=== PATIENT | female | born 1990 | race Caucasian/White ===

== ENCOUNTER 2020-03-12 08:24 | Outpatient (CLI) | payer BC, SELFPAY ==
[2020-03-12 08:56] VITALS: BP 115/74; PULSE 80
[2020-03-12 09:00] VITALS: BP 112/76; PULSE 96
[2020-03-12 09:03] LABS: Basophils Percent Auto 0.3 % (0.2-1.2); Eosinophils Absolute Auto 0.2 K/mm3 (0-0.3); Eosinophils Percent Auto 1.8 % (0-4.4); Hematocrit 37.8 % (37.0-47.0); Hemoglobin 12.5 g/dL (12.0-15.0); Immature Granulocyte Absolute 0.06 K/mm3 (0.00-0.031); Immature Granulocyte Percent A 0.6 % (0-0.5); Lymphocytes Absolute Auto 1.15 K/mm3 (0.9-3.2); Lymphocytes Percent Auto 11.6 % (18.3-44.2); Mean Corpuscular HGB Conc 33.1 g/dl (32-36); Mean Corpuscular Hemoglobin 28.8 pg (26-34); Mean Corpuscular Volume 87.1 fl (80-100); Mean Platelet Volume 10.1 fl (7.4-10.4); Monocytes Absolute Auto 0.6 K/mm3 (0.1-0.6); Monocytes Percent Auto 5.9 % (2.6-8.5); Neutrophils Absolute Auto 7.9 K/mm3 (1.3-6.7); Neutrophils Percent Auto 79.8 % (45.5-73.1); Platelet Count Result 192 k/mm3 (150-375); Red Blood Count 4.34 M/mm3 (4.2-5.4); Red Cell Distribution Width 13.4 % (11.5-14.5); White Blood Count 9.9 K/mm3 (4.5-10.0)
[2020-03-12 09:10] LABS: Creatinine Urine 100.6 mg/dL; Total Protein Urine Random 8 mg/dL
[2020-03-12 09:15] VITALS: BP 112/78; PULSE 82
[2020-03-12 09:16] LABS: Alanine Aminotransferase 11 U/L (4-35); Albumin Level 3.4 g/dL (3.5-5.1); Alkaline Phosphatase 53 U/L (38-126); Aspartate Amino Transferase 16 U/L (14-36); Bilirubin,Total 0.4 mg/dL (0.2-1.3); Blood Urea Nitrogen 10 mg/dL (7-17); Calcium 8.3 mg/dL (8.4-10.2); Carbon Dioxide 24 mmol/L (22-30); Chloride 104 mmol/L (98-107); Estimated Glomerular Filt Rate > 60; Glucose 80 mg/dL (65-105); Potassium 3.5 mmol/L (3.4-5.0); Sodium 133 mmol/L (137-145); Uric Acid 3.5 mg/dL (2.5-7.5)
--- NOTE | 2020-03-12 10:00 | PC.NURSE ---
Called Dr. Crews with labs and BPs. Orders received.
== END 2020-03-12 10:15 | disposition home or self-care (01) ==
LOC: ANHOBOP 08:31 → ANHOBPP 08:36
PROVIDERS: Visit Provider Obstetrics & Gynecology
DX: O13.9 Gestational [pregnancy-induced] hypertension without significant proteinuria, unspecified trimester (principal)
CPT/HCPCS: 36415; 80053; 82570; 84156; 84550; 85025; 99199

== ENCOUNTER 2020-03-13 16:30 | Outpatient (CLI) | payer BC, SELFPAY ==
[2020-03-13 16:48] VITALS: BMI 36.7
[2020-03-13 17:20] LABS: Collection Time Urine 24 HOURS
[2020-03-13 17:56] LABS: Patient Weight 207 Lbs
[2020-03-13 18:03] LABS: Specific Gravity Ur 1.011; Total Volume 24 Hour Urine 2800 ml
[2020-03-13 18:12] LABS: Creatinine Clearance Urine 147.1 ml/min (75-125); Creatinine Urine 51.3 mg/dL; Total Protein Urine 24 Hr 252 MG/DAY (28-141); Total Protein Urine Random 9 mg/dL
== END 2020-03-13 16:31 | disposition home or self-care (01) ==
LOC: ANHOBOP 16:42
PROVIDERS: Visit Provider Obstetrics & Gynecology
DX: O13.9 Gestational [pregnancy-induced] hypertension without significant proteinuria, unspecified trimester (principal)
CPT/HCPCS: 81050; 82575; 84156

== ENCOUNTER 2020-06-29 09:54 | Outpatient (RCR) | payer BC, SELFPAY ==
[2020-06-15 12:58] VITALS: BP 115/73; PULSE 81
[2020-06-22 09:15] VITALS: BP 121/74; PULSE 98
--- NOTE | ~2020-06-29 | US_ITS ---
EXAMINATION: US OB limited EXAM DATE: 06/22/2020 09:27 INDICATION: Large for gestational age. 3rd trimester. TECHNIQUE: Pelvic obstetrical transabdominal sonogram was performed by a technologist. There are mu ltiple grayscale and Doppler images available for interpretation. Comparison is made to prior examina tion from 06/15/2020. FINDINGS: There is a single fetus identified in vertex presentation with a heart rate of 155 beats p er minute. The placenta is located in the anterior position. There is no sonographic evidence of ret roplacental hemorrhage identified. The amniotic fluid index is 13.5 centimeters, which is normal. IMPRESSION: 1. Single fetus in vertex presentation with heart rate 155 beats per minute. 2. Normal STACI 13.5 cm. Reviewed, dictated and finalized at location A.
--- NOTE | ~2020-06-29 | US_ITS ---
US OB limited 06/29/2020 10:43 Indication: Large for gestational age. Evaluate STACI. Procedure: High-resolution Limited obstetrical ultrasound Comparison: 06/22/2020 Findings: Single living intrauterine in vertex presentation with heart rate of 144 BP M. Placenta is anterior without previa. STACI is normal measuring 19.1 cm (normal range for gestational age is 7.3-23.9 cm. Impression: 1: Single living intrauterine in vertex presentation. 2: Normal STACI measures 19.1 cm. Reviewed, dictated and finalized at location A. Impression: 1: Single living intrauterine in vertex presentation. 2: Normal STACI measures 19.1 cm.
--- NOTE | ~2020-06-29 | US_ITS ---
US OB limited 06/15/2020 12:40 Indication: Evaluate fluid volume Procedure: High-resolution Limited obstetrical ultrasound Comparison: No prior studies for comparison. Findings: There is a single living intrauterine and vertex presentation. heart rate i s 131 BPM. Placenta is anterior without previa. Amniotic fluid index is normal measuring 15.1 cm (nor mal range for gestational age is 7.7-24.9 cm). Impression: 1: Normal STACI measures 15.1 cm. Reviewed, dictated and finalized at location A. Impression: 1: Normal STACI measures 15.1 cm.
[2020-06-29 10:52] VITALS: BP 110/70
== END 2020-07-05 14:41 | disposition home or self-care (01) ==
LOC: ANHOBOP 09:54
PROVIDERS: Visit Provider Obstetrics & Gynecology
DX: O36.63X0 Maternal care for excessive fetal growth, third trimester, not applicable or unspecified (principal); Z3A.36 36 weeks gestation of pregnancy; Z3A.37 37 weeks gestation of pregnancy; Z3A.38 38 weeks gestation of pregnancy
CPT/HCPCS: 59025; 76815

== ENCOUNTER 2020-07-04 19:00 | Inpatient (IN) | payer BC, SELFPAY ==
[2020-07-04] VITALS (14 sets, daily range): BP systolic 84–129; BP diastolic 45–79; PULSE 61–109; RESP 18–20; TEMP 36.4–36.8; BMI 40.6
[2020-07-04 20:02] LABS: Basophils Absolute Auto 0.1 K/mm3 (0.0-0.1); Basophils Percent Auto 0.5 % (0.2-1.2); Eosinophils Absolute Auto 0.2 K/mm3 (0-0.3); Hematocrit 40.3 % (37.0-47.0); Hemoglobin 13.6 g/dL (12.0-15.0); Immature Granulocyte Absolute 0.06 K/mm3 (0.00-0.031); Immature Granulocyte Percent A 0.5 % (0-0.5); Lymphocytes Absolute Auto 2.19 K/mm3 (0.9-3.2); Lymphocytes Percent Auto 18.8 % (18.3-44.2); Mean Corpuscular HGB Conc 33.7 g/dl (32-36); Mean Corpuscular Hemoglobin 28.8 pg (26-34); Mean Corpuscular Volume 85.4 fl (80-100); Mean Platelet Volume 10.6 fl (7.4-10.4); Monocytes Absolute Auto 0.7 K/mm3 (0.1-0.6); Monocytes Percent Auto 5.7 % (2.6-8.5); Neutrophils Absolute Auto 8.5 K/mm3 (1.3-6.7); Neutrophils Percent Auto 72.5 % (45.5-73.1); Platelet Count Result 191 k/mm3 (150-375); Red Blood Count 4.72 M/mm3 (4.2-5.4); White Blood Count 11.7 K/mm3 (4.5-10.0)
[2020-07-04] MEDS: DINOPROSTONE 10 MG VAG INSERT VAGINAL (20:29)
[2020-07-04] MEDS: LACTATED RINGERS 1,000 ML 125 ML IV CONT (20:37)
[2020-07-05] VITALS (161 sets, daily range): BP systolic 54–133; BP diastolic 27–107; PULSE 29–233; RESP 14–18; TEMP 36.2–37; O2SAT 80–100
[2020-07-05] MEDS: OXYTOCIN 30 UNITS/NS 500 ML 30 UNITS/500 ML BAG IV CONT (08:59)
[2020-07-05] MEDS: LACTATED RINGERS 1,000 ML 125 ML IV CONT ×4 (11:15→16:15)
[2020-07-05 11:20] LABS: Rapid Plasma Reagin Non-Reactive (NonReactive)
--- NOTE | 2020-07-05 12:09 | PM.IMHP ---
H&P: HPI History of Present Illness Date/Time: 07/05/20 12:09 Chief complaint: Induction of Labor Narrative: Marlena Draper is a 30 year old female at 39 4/7 weeks by EDC of 07/08/20 based on LMP 10/01/19 consistent with 8 week ultrasound. She is here for elective medical induction of labor. She was getting surveillance due to BMI 40 and has had normal surveillance. Cephalic presentation. PNC significant for gallstones diagnosed early . She has been asymptomatic. Last ultrasound EFW 75%. Labs: B+,ab-neg, h/h1/42,NIPT- nl, UA neg, Ur Cx neg, Frag X neg, HepBsag-neg, RPR neg, GC/CHL -/-, HIV neg, HCV ab neg, Hgbfrac-HgbA, one hour 116, GBS neg. Review of Systems Review of Systems: All systems reviewed & are unremarkable except as noted in HPI and below Constitutional: Constitutional: Reports no additional constitutional complaints and Denies headache(s) Eyes: Eyes: Denies spots in vision ENT: Reports system reviewed and no additional complaints, except as documented and Denies headache(s) Cardiovascular: Cardiovascular: Denies chest pain and Denies dyspnea Respiratory: Respiratory: Denies dyspnea Gastrointestinal: Gastrointestinal: Reports no additional gastrointestinal complaints Genitourinary: Genitourinary: Reports amenorrhea Musculoskeletal: Musculoskeletal: Reports no additional musculoskeletal complaints Integumentary/Breasts: Skin/Breast: Denies breast mass and Denies rash Neurologic: Denies headache(s) Psychiatric: Psychiatric: Reports no additional psychiatric complaints [facility] Past Medical History Medical History (Updated 07/05/20 @ 12:15 by Eric Crews MD) Gallstones Vaginal delivery Surgical History Surgical History [place] teeth removed Family History Family History Father Family history of type 1 diabetes mellitus Social History Social History Smoking status: Never smoker Second hand tobacco smoke exposure: No Alcohol intake: current Substance use: never Spiritual care concerns: No Meds Home Medications and Allergies Home Medications Medication Instructions Recorded Confirmed Type no.144-folic acid 1 tablet PO DAILY 07/04/20 07/04/20 History [] Allergies Allergy/AdvReac Type Severity Reaction Status Date / Time No Known Allergies Allergy Verified 07/02/20 09:49 Vital Signs Vital Signs - 24 hr 07/04/20 19:41 07/04/20 19:46 07/04/20 20:01 Temperature 98.3 F Pulse Rate 70 84 73 Respiratory Rate 20 Blood Pressure 117/64 119/74 121/74 07/04/20 20:16 07/04/20 20:36 07/04/20 20:46 Temperature Pulse Rate 75 61 77 Respiratory Rate Blood Pressure 129/79 123/66 114/73 07/04/20 21:01 07/04/20 21:16 07/04/20 21:32 Temperature Pulse Rate 74 66 92 Respiratory Rate Blood Pressure 109/45 L 84/51 L 95/75 L 07/04/20 21:46 07/04/20 22:01 07/04/20 22:16 Temperature Pulse Rate 63 109 H 65 Respiratory Rate Blood Pressure 105/48 L 95/66 L 89/46 L 07/04/20 22:30 07/04/20 22:31 07/05/20 02:28 Temperature 97.5 F L 97.4 F L Pulse Rate 68 78 Respiratory Rate 18 18 Blood Pressure 111/75 92/58 L 07/05/20 08:57 07/05/20 08:58 07/05/20 09:01 Temperature 98.3 F Pulse Rate 72 77 Respiratory Rate Blood Pressure 127/77 118/69 07/05/20 09:31 07/05/20 10:01 07/05/20 10:31 Temperature Pulse Rate 74 64 62 Respiratory Rate Blood Pressure 111/79 116/72 110/68 07/05/20 11:00 07/05/20 11:01 07/05/20 11:31 Temperature 97.5 F L Pulse Rate 72 64 Respiratory Rate Blood Pressure 117/65 118/73 07/05/20 12:00 07/05/20 12:01 Temperature 98 F Pulse Rate 54 L Respiratory Rate Blood Pressure 109/70 Exam Const: General: no acute distress Eyes: General: appearance normal, both
--- NOTE | 2020-07-05 12:19 | PM.OBPNVD ---
OB - PN: Subj Subjective Date/time seen: 07/05/20 12:19 FHT 150 Cat 1, Irreg ctx Cervix /50/-2. AROM clear at 1157. Continue Pitocin induction. OB - PN: Obj Data Labs CBC & Chem 7: 07/04/20 19:55 Labs: Laboratory Results - last 24 hr 07/04/20 07/04/20 07/04/20 19:55 19:55 19:55 WBC 11.7 H RBC 4.72 Hgb 13.6 Hct 40.3 MCV 85.4 MCH 28.8 MCHC 33.7 RDW 14.0 Plt Count 191 MPV 10.6 H Immature Gran % (Auto) 0.5 Neut % (Auto) 72.5 Lymph % (Auto) 18.8 [place] % (Auto) 5.7 Eos % (Auto) 2.0 Baso % (Auto) 0.5 Lymph # (Auto) 2.19 [place] # (Auto) 0.7 H Eos # (Auto) 0.2 Baso # (Auto) 0.1 Abs Immat Gran (auto) 0.06 H Absolute Neuts (auto) 8.5 H Absolute Nucleated RBC 0.0 Nucleated RBC % 0.0 RPR Non-reactive Blood Type B Positive Antibody Screen Negative OB - PN A/P Time Spent With Patient Time: Total time spent is greater than 50% in coordination of care (as documented) at patient's floor/unit and/or counseling patient:
--- NOTE | 2020-07-05 12:46 | WPDANESEPP ---
Anes - Eval Pre Procedure Procedure: labor epidural Date/Time: 07/05/20 12:46 Surgeon: derek Preop Diagnosis: pain during labor Pre Op Diagnosis: Induction of Labor Patient Data Age: 30 Gender: F Height: 5 ft 2 in Weight: 100.9 kg Last Vital Signs Temp 36.6 C 07/05/20 12:00 Pulse 86 07/05/20 12:43 Resp 18 07/05/20 02:28 BP 101/64 07/05/20 12:43 Pulse Ox 100 07/05/20 12:41 Allergies Allergy/AdvReac Type Severity Reaction Status Date / Time No Known Allergies Allergy Verified 07/02/20 09:49 Home Medications Medication Instructions Recorded Confirmed Type no.144-folic acid 1 tablet PO DAILY 07/04/20 07/04/20 History [] Laboratory Tests 07/04/20 07/04/20 07/04/20 19:55 19:55 19:55 WBC 11.7 K/mm3 H K/mm3 (4.5-10.0) RBC 4.72 M/mm3 M/mm3 (4.2-5.4) Hgb 13.6 g/dL g/dL (12.0-15.0) Hct 40.3 % % (37.0-47.0) MCV 85.4 fl fl (80-100) MCH 28.8 pg pg (26-34) MCHC 33.7 g/dl g/dl (32-36) RDW 14.0 % % (11.5-14.5) Plt Count 191 k/mm3 k/mm3 (150-375) MPV 10.6 fl H fl (7.4-10.4) Immature Gran % (Auto) 0.5 % % (0-0.5) Neut % (Auto) 72.5 % % (45.5-73.1) Lymph % (Auto) 18.8 % % (18.3-44.2) [place] % (Auto) 5.7 % % (2.6-8.5) Eos % (Auto) 2.0 % % (0-4.4) Baso % (Auto) 0.5 % % (0.2-1.2) Lymph # (Auto) 2.19 K/mm3 K/mm3 (0.9-3.2) [place] # (Auto) 0.7 K/mm3 H K/mm3 (0.1-0.6) Eos # (Auto) 0.2 K/mm3 K/mm3 (0-0.3) Baso # (Auto) 0.1 K/mm3 K/mm3 (0.0-0.1) Abs Immat Gran (auto) 0.06 K/mm3 H K/mm3 (0.00-0.031) Absolute Neuts (auto) 8.5 K/mm3 H K/mm3 (1.3-6.7) Absolute Nucleated RBC 0.0 K/mm3 K/mm3 (0.0-0.012) Nucleated RBC % 0.0 % % (0.0-0.2) RPR Non-reactive (NonReactive) Blood Type B Positive Antibody Screen Negative Patient hx anesthesia problems: none Family hx anesthesia problems: none [facility] Past Medical History Medical History (Updated 07/05/20 @ 13:35 by Rikki Manzo CRNA) Gallstones Vaginal delivery Surgical History Surgical History [place] teeth removed Family History Family History Father Family history of type 1 diabetes mellitus Social History Social History Smoking status: Never smoker Second hand tobacco smoke exposure: No Alcohol intake: current Substance use: never Spiritual care concerns: No Exam Day of Procedure 07/05/20 12:46 Patient weight: morbidly obese Heart: regular rate and rhythm Lungs: clear to auscultation and normal air movement Airway: Mallampati scale class III Neurological: alert and oriented
[2020-07-05] MEDS: PHENYLEPHRINE 1,000 MCG/10 ML SYRINGE 100 MCG IV PUSH ×3 (13:06→16:22)
--- NOTE | 2020-07-05 17:02 | PM.OBPRVD ---
OB - Delivery Note Procedure Delivery date: 07/05/20 Procedure: Spontaneous vaginal delivery Induction method: per misoprostol protocol Delivery augmentation: rupture of membranes and pitocin Delivery monitor: external FHT Route of delivery: Laceration description: Vaginal - 1st Degree Delivery repair: vicryl (3.0 vicryl) Specimen: No Estimated blood loss (mL): 150 Anesthesia type: Epidural Disposition: floor Complications: Mild shoulder dystocia relieved with modified Maryann and suprapubic pressure. 35 sec. Terminal meconium noted. Narrative: Patient admitted on 07/04/20 for medical induction of labor elective. Her cervix was closed and thick. On morning of 07/05/20 when cervidil removed her cervix was 3/thick and high. Pitocin was started per induction protocol. She was kathryn with Pitocin. She had AROM clear fluid. She progressed to complete. Labor course significant for episode of late decelerations which resolved with discontinuing Pitocin. Tracing was then reassuring. Pitocin was restarted. She was complete. Moderate declerations were noted. She delivered a male at 1648. There was a mild shoulder dystocia relieved with modified Maryann and suprapubic pressure the shoulders were delivered and the rest of the was delivered. was crying and placed on maternal abdomen. Terminal meconium noted. Delayed cord clamping for 30 sec. Placenta delivered spontaneously and intact. Small laceration at introitus repaired with figure of eight suture of 3.o vicryl. Hemostasis noted. The uterus was firm. The lower uterine segment was cleared of small clots. The vagina was swept was cleared of small clot. Patient tolerated procedure well. [place] Baby Date of : 07/05/20 Time of : 16:48 Weeks of gestation at delivery: 39 gender: Male Weight (pounds): 9 Weight (ounces): 1 presentation: vertex position: Left Occiput Anterior Placenta delivery description: Spontaneous score one minute: 8 score five minutes: 9
[2020-07-05] MEDS: OXYTOCIN 30 UNITS/NS 500 ML 30 UNITS/500 ML BAG 125 UNITS IV CONT (17:23)
[2020-07-05] MEDS: WITCH HAZEL 40 PADS 1 PAD TOPICAL (20:30)
[2020-07-05] MEDS: BENZOCAINE 20% AER SPR (*SP) 56 GM CAN 1 SPRAY TOPICAL (20:30)
[2020-07-05] MEDS: IBUPROFEN 600 MG TABLET PO (21:20)
[2020-07-05] MEDS: MULTIVIT/MIN/PREN/FOL AC/IRON TABLET 1 TAB (21:20)
[2020-07-06] MEDS: IBUPROFEN 600 MG TABLET PO ×3 (05:28→20:25)
[2020-07-06 05:33] LABS: Hemoglobin 12.1 g/dL (12.0-15.0)
--- NOTE | 2020-07-06 08:15 | WPDANLDPN2 ---
Anes-Prog Note L&D Date/Time: 07/06/20 08:15 Comfortable throughout: labor and delivery Neuraxial method: epidural Epidural/Spinal procedure site: clean & non-tender Neuro status: Neuro function grossly intact. Cardiovascular status: normal Respiratory status: normal Airway patency: baseline Mental status: baseline Post-Op hydration status: normal Vital Signs: Last Vital Signs Temp 37.0 C 07/05/20 20:50 Pulse 65 07/05/20 20:50 Resp 14 07/05/20 20:50 BP 105/63 07/05/20 20:50 Pulse Ox 99 07/05/20 20:50 Pain score (VAS): 2 I/O: Intake & Output 07/05/20 07/06/20 07/06/20 23:59 07:59 15:59 Intake Total 1000 Output Total 250 Balance 750 Post-procedural complaints: none Patient feedback: Patient satisfied with anesthetic care.
[2020-07-06 08:42] VITALS: BP 120/59; PULSE 80; RESP 18; TEMP 36.3; O2SAT 100
--- NOTE | 2020-07-06 10:08 | PM.OBPNVD ---
OB - PN: Subj Subjective Date/time seen: 07/06/20 10:08 She is bottle and pumping. Ambulating and showering without problems. Patient comments: pain well controlled, tolerating diet and other (Decreasing lochia.) baby status: doing well OB - PN: Obj Data Labs CBC & Chem 7: 07/06/20 05:24 Labs: Laboratory Results - last 24 hr 07/04/20 07/06/20 19:55 05:24 Hgb 12.1 Hct 36.0 L RPR Non-reactive OB - PN A/P Plan day: 1 Plan: routine care Comments: Patient doing well. Routine care. Time Spent With Patient Time: Total time spent is greater than 50% in coordination of care (as documented) at patient's floor/unit and/or counseling patient: Review of Systems Review of Systems: All systems reviewed & are unremarkable except as noted in HPI and below Constitutional: Constitutional: Reports no additional constitutional complaints Cardiovascular: Cardiovascular: Denies dyspnea Respiratory: Respiratory: Denies dyspnea Gastrointestinal: Gastrointestinal: Reports no additional gastrointestinal complaints and Denies abdominal pain Genitourinary: Genitourinary: Reports no additional female genitourinary complaints Exam Psych: Affect: normal affect Other: Abd: fundus firm below umbilicus, nontender Perineum: healing Ext: nontender
[2020-07-06] MEDS: MULTIVIT/MIN/PREN/FOL AC/IRON TABLET 1 TAB PO (11:33)
[2020-07-06] MEDS: DOCUSATE SODIUM 100 MG CAPSULE PO (20:25)
[2020-07-06 20:30] VITALS: BP 104/64; PULSE 80; RESP 15; TEMP 37.3; O2SAT 97
[2020-07-07] MEDS: IBUPROFEN 600 MG TABLET PO ×2 (05:17→11:38)
[2020-07-07] MEDS: ACETAMINOPHEN 325 MG TABLET 650 MG PO (07:39)
[2020-07-07] MEDS: DOCUSATE SODIUM 100 MG CAPSULE PO (07:41)
[2020-07-07] MEDS: MULTIVIT/MIN/PREN/FOL AC/IRON TABLET 1 TAB PO (07:41)
[2020-07-07 08:03] VITALS: PULSE 60; RESP 16; O2SAT 98
[2020-07-07 08:06] VITALS: BP 109/59; PULSE 60; RESP 16; TEMP 36.3; O2SAT 98
--- NOTE | 2020-07-07 10:19 | PM.OBPNVD ---
OB - PN: Subj Subjective Date/time seen: 07/07/20 10:19 Patient comments: pain well controlled, tolerating diet and other (Decreasing lochia.) baby status: doing well and nursing well OB - PN: Obj Data Labs CBC & Chem 7: 07/06/20 05:24 OB - PN A/P Plan day: 2 Plan: discharge home and other Comments: Patient doing well. Follow up 4-6 weeks. Discharge instructions provided. Time Spent With Patient Time: Total time spent is greater than 50% in coordination of care (as documented) at patient's floor/unit and/or counseling patient: Time with patient: less than 15 minutes Exam Psych: Affect: normal affect Other: Abd: fundus firm below umbilicus, nontender Perineum: healing Ext: nontender
--- NOTE | 2020-07-07 10:19 | PM.OBDSVD ---
DS: Admitting Diagnosis Admitting Diagnosis Admitting Diagnosis: Induction of Labor DS: Discharge Diagnosis Discharge Diagnosis (1) Delivery normal: Code(s): O80 - Encounter for full-term uncomplicated delivery Status: Acute OB - DS: Summary OB Procedures : NST and Ultrasound OB Procedures Intrapartum: Spontaneous Vag Delivery OB Procedures: : None Time Spent with Patient Time attestation: Total time spent providing and/or coordinating discharge services: Exam Psych: Affect: normal affect Other: Abd: fundus firm below umbilicus, nontender Perineum: healing Ext: nontender Discharge Plan Discharge Attending physician on discharge: Eric Crews Discharging Clinician: Eric Crews Anticipated Discharge Date/Time: 07/07/20 10:20 Patient Disposition: Home, Self-Care Activity: may shower and pelvic rest Diet: regular Discharge Instructions: Pelvic rest for four to six weeks. May take over the counter Ibuprofen and Tylenol for pain. Call for bleeding saturating more than a pad an hour, fever, leg redness or tenderness. Patient Instructions: Antibiotic Form Stand Alone Forms: General Discharge Information Follow-up/Referrals: Eric Crews MD [Physician] - 4 Weeks Discharge Medications: Continued 400 mcg Tablet,Chewable 1 tablet PO DAILY RF: 0 Date of admission: 07/04/20 19:00 Primary Care Provider: PHYSICIAN,SURGICAL INSTRUMENTS INSPECTOR Admitting Provider: Eric Crews Attending physician on admission: Eric Crews
--- NOTE | 2020-07-07 12:05 | PC.NURSE ---
Patient discharged home, ambulated to awaiting car. All questions answered, follow-up appointment scheduled.
[2020-07-08 08:41] VITALS: BP 111/63; PULSE 56; RESP 20; O2SAT 100
== END 2020-07-07 11:58 | disposition home or self-care (01) | DRG 807 ==
LOC: ANHLDR 07-05 13:50 → ANHOB2 07-05 20:41
PROVIDERS: Admitting Provider Obstetrics & Gynecology; Visit Provider Obstetrics & Gynecology
DX: O99.214 Obesity complicating childbirth (principal); Z37.0 Single live birth; Z3A.39 39 weeks gestation of pregnancy; E66.01 Morbid (severe) obesity due to excess calories; O70.0 First degree perineal laceration during delivery; O66.0 Obstructed labor due to shoulder dystocia; O77.0 Labor and delivery complicated by meconium in amniotic fluid; O36.8330 Maternal care for abnormalities of the fetal heart rate or rhythm, third trimester, not applicable or unspecified; O99.62 Diseases of the digestive system complicating childbirth; K80.20 Calculus of gallbladder without cholecystitis without obstruction
CPT/HCPCS: 36415; 85014; 85018; 85025; 86592; 86850; 86900; 86901; A9270; J2370; J2590; J2795; J7120